=== PATIENT | male | born 1950 | race Caucasian/White ===

== ENCOUNTER → 2016-05-20 | Outpatient (CLI) | payer BC, OTHER ==
[2016-05-20 13:27] LABS: BASO % 0.7 %; BASO ABS # 0.05 K/uL (0-0.2); COMPLETE YES; EOS % 5.2 %; HEMATOCRIT 44.2 % (42-52); IG% 0.1 %; LYMPH ABS # 2.34 K/uL (1.2-3.4); MEAN CORPUSCULAR HEMOGLOBIN 30.9 pg (25-34); MEAN CORPUSCULAR HGB CONC 35.1 g/dl (32-36); MEAN PLATELET VOLUME 9.8 fL (7.4-10.4); MONO % 7.7 %; NEUT % 53.3 %; PLATELET COUNT 203 K/uL (130-400); RED BLOOD COUNT 5.02 M/uL (4.7-6.1)
[2016-05-20 14:00] LABS: ESTIMATED AVERAGE GLUCOSE 137 mg/dl; HA1C FLAG Normal (Normal)
[2016-05-20 14:34] LABS: RATIO 4.4 mcg/mg (0-30.0)
[2016-05-20 15:00] LABS: ALT/SGPT 54 U/L (12-78); AST/SGOT 17 U/L (15-37); BLOOD UREA NITROGEN 15 mg/dl (7-18); BUN/CREATININE RATIO 13.2 (10-20); CALCIUM 8.6 mg/dl (8.5-10.1); CARBON DIOXIDE 27 mmol/L (21-32); CHLORIDE 108 mmol/L (98-107); CHOLESTEROL 210 mg/dl (0-200); GLUCOSE 108 mg/dl (70-99); MAGNESIUM 2.3 mg/dl (1.8-2.4); SODIUM 142 mmol/L (136-145); TRIGLYCERIDES 121 mg/dl (0-150); VERY LOW DENSITY LIPOPROT CALC 24 mg/dl
[2016-05-20 15:11] LABS: ALB/GLOB RATIO 1.2 (0.9-2); ALKALINE PHOSPHATASE 62 U/L (45-117); CHOLESTEROL/HDL RATIO 3.6; HDL CHOLESTEROL 59 mg/dl; LDL CHOLESTEROL CALCULATED 127 mg/dl
--- NOTE | 2016-05-27 12:29 | CODING QUERY MEDICAL NECESSITY ---
CQSUPPORTING DIAGNOSIS NEEDED A supporting diagnosis is required for the test/procedure performed on this patient in order for us to be reimbursed by the patient's insurance. Please provide a supporting diagnosis for the following test/procedure listed below next to the test name along with your signature. *If there is no additional diagnosis for this patient that would support the following test/procedure please document that below next to the test/procedure. Test(s)/Procedure(s) that require a supporting diagnosis: DOS 05/20/16 VITAMIN D TEST VITAMIN B12 TEST TESTS ORDERED BY JAVAD WHITESIDE Provider Signature: Date: Thank you Ruchi Mendoza Health Information Management Once completed, please kindly fax back to [phone] For questions please call [phone]
== END | disposition home or self-care (01) ==
LOC: C.LABMFLN 07:24
PROVIDERS: ATTEND Physician Assistant
DX: E78.5 Hyperlipidemia, unspecified (principal); I10 Essential (primary) hypertension; E11.9 Type 2 diabetes mellitus without complications; R25.2 Cramp and spasm

== ENCOUNTER → 2017-05-01 | Outpatient (CLI) | payer BC ==
[2017-05-01 13:08] LABS: BASO % 0.8 %; BASO ABS # 0.05 K/uL (0-0.2); EOS % 5.6 %; EOS ABS # 0.35 K/uL (0-0.5); HEMATOCRIT 41.2 % (42-52); HEMOGLOBIN 14.5 g/dL (14.0-18.0); LYMPH % 28.4 %; LYMPH ABS # 1.78 K/uL (1.2-3.4); MEAN CELL VOLUME 88.4 fL (80-100); MEAN CORPUSCULAR HEMOGLOBIN 31.1 pg (25-34); MEAN CORPUSCULAR HGB CONC 35.2 g/dl (32-36); MEAN PLATELET VOLUME 9.6 fL (7.4-10.4); MONO % 12.3 %; MONO ABS # 0.77 K/uL (0.11-0.59); NEUT % 52.9 %; NEUT ABS # 3.32 K/uL (1.4-6.5); PLATELET COUNT 248 K/uL (130-400); RED CELL DISTRIBUTION WIDTH CV 13.1 % (11.5-14.5); RED CELL DISTRIBUTION WIDTH SD 42.3 fL (36.4-46.3); WHITE BLOOD COUNT 6.27 K/uL (4.8-10.8)
[2017-05-01 13:35] LABS: ALBUMIN 3.8 gm/dl (3.4-5.0); ALT/SGPT 35 U/L (12-78); AST/SGOT 22 U/L (15-37); BLOOD UREA NITROGEN 14 mg/dl (7-18); CALCIUM 8.9 mg/dl (8.5-10.1); CARBON DIOXIDE 28 mmol/L (21-32); CHOLESTEROL 145 mg/dl (0-200); CREATININE 1.06 mg/dl (0.60-1.40); GLUCOSE 113 mg/dl (70-99); POTASSIUM 3.9 mmol/L (3.5-5.1); SODIUM 137 mmol/L (136-145)
[2017-05-01 13:45] LABS: ALKALINE PHOSPHATASE 66 U/L (45-117); HEMOGLOBIN A1C 5.5 % (4.5-5.6); LDL CHOLESTEROL CALCULATED 66 mg/dl
== END | disposition home or self-care (01) ==
LOC: C.LABMFLN 09:01
PROVIDERS: ATTEND Physician Assistant
DX: I10 Essential (primary) hypertension (principal); E78.5 Hyperlipidemia, unspecified; E11.9 Type 2 diabetes mellitus without complications; Z12.5 Encounter for screening for malignant neoplasm of prostate

== ENCOUNTER 2019-03-25 11:10 | Inpatient (IN) ==
--- NOTE | 2019-02-25 13:07 | PAT Medication Instructions ---
Medication Instructions Date of Service February 25, 2019 Home Medications Medication Instructions Recorded aspirin 81 mg tablet,delayed 81 mg PO DAILY #30 tab 07/13/18 release budesonide-formoterol HFA 160 2 puffs INH BID #6 gm 07/13/18 mcg-4.5 mcg/actuation aerosol inhaler aspirin 81 mg tablet,delayed release 81 mg PO DAILY budesonide-formoterol HFA 160 mcg-4.5 mcg/actuation aerosol inhaler 2 puffs INH BID cyanocobalamin (vitamin B-12) 500 mcg tablet 1,000 mcg PO DAILY albuterol sulfate 2 puffs INH UD PRN amlodipine 5 mg PO QAM escitalopram oxalate 10 mg PO QAM hydrochlorothiazide 25 mg PO DAILY lisinopril 40 mg PO DAILY simvastatin 40 mg PO BID zolpidem 5 - 10 mg PO HS PRN ASK your prescriber and surgeon aspirin 81 mg tablet,delayed release 81 mg PO DAILY DO NOT take the morning of surgery cyanocobalamin (vitamin B-12) 500 mcg tablet 1,000 mcg PO DAILY hydrochlorothiazide 25 mg PO DAILY lisinopril 40 mg PO DAILY Take morning of surgery With a small sip of water, OTHERWISE NOTHING TO EAT OR DRINK AFTER MIDNIGHT: budesonide-formoterol HFA 160 mcg-4.5 mcg/actuation aerosol inhaler 2 puffs INH BID albuterol sulfate 2 puffs INH UD PRN (use if needed; please bring with you to hospital day of surgery if possible) amlodipine 5 mg PO QAM escitalopram oxalate 10 mg PO QAM simvastatin 40 mg PO BID Take evening before surgery budesonide-formoterol HFA 160 mcg-4.5 mcg/actuation aerosol inhaler 2 puffs INH BID albuterol sulfate 2 puffs INH UD PRN (if needed) simvastatin 40 mg PO BID zolpidem 5 - 10 mg PO HS PRN (if needed) Other Notes If you have any questions please call us at [phone] or [phone] or [phone] or [phone]
--- NOTE | 2019-02-26 10:39 | Anesthesiology Consultation ---
Date of Service February 26, 2019 Assessment & Plan (1) Encounter for pre-operative examination: Chart Review Chart Review: Acceptable Risk for Surgery and Patient seen in Pre Admission Testing Teaching & Discussion Pre-Anesthesia Teaching/Discussion Notes: Instructed NPO after midnight before surgery,except medications with 15 cc of water. Medication instructions provided according to the PAT guidelines. History Surgery Operation Date: 03/25/19 07:15 Proposed Procedures p right Total Shoulder Arthroplasty - Mao Sandoval MD Height/Weight Height: 5 ft 7 in Weight: 84.2 kg Allergies Allergy/AdvReac Type Severity Reaction Status Date / Time No Known Allergies Allergy Unknown Verified 02/18/19 11:47 Medications Home Medications Medication Instructions Recorded Confirmed Last Taken aspirin 81 mg tablet,delayed 81 mg PO DAILY #30 tab 07/13/18 02/18/19 Unknown release budesonide-formoterol HFA 160 2 puffs INH BID #6 gm 07/13/18 02/18/19 Unknown mcg-4.5 mcg/actuation aerosol inhaler cyanocobalamin (vitamin B-12) 500 1,000 mcg PO DAILY tab 07/31/18 02/18/19 Unknown mcg tablet albuterol sulfate 2 puffs INH UD PRN 02/18/19 02/18/19 Unknown amlodipine 5 mg PO QAM 02/18/19 02/18/19 Unknown escitalopram oxalate 10 mg PO QAM 02/18/19 02/18/19 Unknown hydrochlorothiazide 25 mg PO DAILY 02/18/19 02/18/19 Unknown lisinopril 40 mg PO DAILY 02/18/19 02/18/19 Unknown simvastatin 40 mg PO BID 02/18/19 02/18/19 Unknown zolpidem 5 - 10 mg PO HS PRN 02/18/19 02/18/19 Unknown Past Medical History Medical History Anxiety Asthma stable Hyperlipidemia Hypertension Exercise / Class Metabolic Activity III < 4 Walking/Shop/Light housework Past Family History Family History Father Cancer Mother Cerebral infarction Brother Diverticulitis Grandfather Family history of cancer Other Family history of diabetes mellitus Past Surgical History Surgical History History of colonoscopy with polypectomy History of knee surgery ? SIDE History of repair of right rotator cuff History of tonsillectomy History of vasectomy Past Anesthesia History No Hx of Anesthesia Complications and No Family Hx of Anesthesia Complications History of PONV No Hx of PONV and No Hx of Motion Sickness Social History Smoking Status: Former smoker Do You Dip or Chew Tobacco: No Smoking End Date: Quit 13.5 YRS AGO Hx Alcohol Use: Yes Alcohol type: beer and other alcohol intake frequency: holidays/special occasions only Alcohol Intake Frequency Comment: BEER OR MIXED DRINK/WINE COOLER Hx Substance Use: Yes (AGE 20'S AND 30'S - EXPERIMENTED - NONE CURRENT) substance use type: does not use Review of Systems Patient denies chest pain, shortness of breath, cough, wheezing, palpitations. Physical Exam Vital Signs VITALS BP 126/71 P 68 TEMP 98.0 SP02 95%RA RESP 18 PHYSICAL Full neck and c-spine range of motion. Full TMJ range of motion. TMD 4 finger breaths Mallampati Score 3 Dentition: upper front right implant, upper partial with remaining teeth Lungs: clear throughout to auscultation Cardiac: regular rate and rhythm, no murmurs noted Spine: normal Carotid arteries: negative bruit Extremities: no edema Testing Laboratory Results 02/26/19 10:51 02/26/19 10:51 PT 10.3 Seconds (9.0-12.0) 02/26/19 10:51 INR 1.0 (0.9-1.1) 02/26/19 10:51 APTT 27.5 Seconds (21.0-31.0) 02/26/19 10:51 Hemoglobin A1c 5.7 % (4.5-5.6) H 02/26/19 10:51 Urine Color Dark Yellow 02/26/19 10:51 Urine Appearance Clear (Clear) 02/26/19 10:51 Urine pH 5.0 (4.5-7.5) 02/26/19 10:51 Ur Specific [place] 1.028 (1.000-1.030) 02/26/19 10:51 Urine Protein Negative (Negative) 02/26/19 10:51 Urine Glucose (UA) Negative (Negative) 02/26/19 10:51 Urine Ketones Trace (Negative) H 02/26/19 10:51 Urine Nitrite Negative (Negative) 01/17/20 10:51 Ur Leukocyte Esterase Trace (Negative) H 02/26/19 10:51 Urine WBC (Auto) 1-5 /hpf (0-5) 02/26/19 10:51 Urine RBC (Auto) 0-4 /hpf (0-4) 02/26/19 10:51 U Hyaline Cast (Auto) >30 /lpf (0-5) H 02/26/19 10:51 U Epithel Cells (Auto) >30 /lpf (0-5) H 02/26/19 10:51 Urine Bacteria (Auto) Negative (Negative) 02/26/19 10:51 Blood Type O Positive 02/26/19 10:51 Antibody Screen NEGATIVE 02/26/19 10:51 Electrocardiogram Date: 02/26/19 Findings: + NSR @ (70) Chest X-Ray Date: 02/26/19 Findings: + NAD Stress Test Date: 11/24/17 Type: exercise Stress echo negative for ischemia by EKG and ECHO criteria. Target heart rate achieved. 6.0 METS. Occasional PVC's and occasional PAC's. LVEF 55-59%. No significant valvular disease. 42% MPHR.
--- NOTE | 2019-02-26 11:19 | XRay Report ---
XR chest Pre-admission PA/Lat CLINICAL HISTORY: pat preoperative evaluation COMPARISON STUDY: No previous studies for comparison. FINDINGS: The bones soft tissues and hemidiaphragms are normal. The cardiomediastinal silhouette is n ormal. The lungs are clear. The pulmonary vasculature is normal. IMPRESSION: Negative chest. ACT 112: Negative or not required by law. The above report was generated using voice recognition software. It may contain grammatical, syntax or spelling errors. Electronically signed by: Ferdinand Llanes M.D. 02/26/2019 11:18 AM
[2019-02-26 11:31] LABS: Basophils # (auto) 0.05 K/uL (0-0.2); Basophils % (auto) 0.8 %; Eosinophils # (auto) 0.36 K/uL (0-0.5); Eosinophils % (auto) 5.8 %; Hematocrit (blood only) 42.8 % (42-52); Hemoglobin 15.1 g/dL (14.0-18.0); Immature Granulocytes # (auto) 0.01 K/uL (0.00-0.02); Immature Granulocytes % (auto) 0.2 %; Lymphocytes # (auto) 1.62 K/uL (1.2-3.4); Mean Corpuscular Hemoglobin 31.1 pg (25-34); Mean Corpuscular Hgb Conc 35.3 g/dL (32-36); Mean Corpuscular Volume 88.2 fL (80-100); Mean Platelet Volume 9.5 fL (7.4-10.4); Monocytes # (auto) 0.55 K/uL (0.11-0.59); Monocytes % (auto) 8.8 %; Neutrophils # (auto) 3.65 K/uL (1.4-6.5); Neutrophils % (auto) 58.4 %; Platelet Count 249 K/uL (130-400); RDW Coefficient of Variation 12.8 % (11.5-14.5); RDW Standard Deviation 41.2 fL (36.4-46.3); Red Blood Count 4.85 M/uL (4.7-6.1); White Blood Count 6.24 K/uL (4.8-10.8)
[2019-02-26 11:34] LABS: Appearance Urine Clear (Clear); Bacteria Urine Automated Negative (Negative); Bilirubin Urine Negative (Negative); Blood Urine Negative (Negative); Color Urine Dark Yellow; Epithelial Cell Urine Auto >30 /lpf (0-5); Glucose Urine UA Negative (Negative); Ketones Urine Trace (Negative); Leukocyte Esterase Urine Trace (Negative); Nitrite Urine Negative (Negative); Protein Urine Negative (Negative); RBC Urine Automated 0-4 /hpf (0-4); Specific Gravity Urine 1.028 (1.000-1.030); Urobilinogen Urine Negative (Negative)
[2019-02-26 11:37] LABS: Albumin Level 3.9 gm/dl (3.4-5.0); BUN Creatinine Ratio 15.5 (10-20); Calcium 9.3 mg/dl (8.5-10.1); Creatinine Clr Calc Pharmacy 54.3 ml/min; Est GFR (African American) 61.4; Potassium 3.7 mmol/L (3.5-5.1)
[2019-02-26 11:44] LABS: Partial Thromboplastin Time 27.5 Seconds (21.0-31.0); Prothrombin Time 10.3 Seconds (9.0-12.0)
[2019-02-26 11:57] LABS: Cast Urine Automated >30 /lpf (0-5); Mucus Urine Present (None Prsent)
--- NOTE | 2019-02-26 12:16 | Electrocardiogram Report ---
Test Reason : Blood Pressure : / mmHG Vent. Rate : 070 BPM Atrial Rate : 070 BPM P-R Int : 166 ms QRS Dur : 070 ms QT Int : 368 ms P-R-T Axes : 070 045 045 degrees QTc Int : 397 ms Normal sinus rhythm Normal ECG No previous ECGs available Confirmed by Jay See ([id number]) on 02/26/2019 12:15:55 PM Referred By: Mao Sandoval Confirmed By:Jay See
[2019-02-26 12:29] LABS: Estimated Average Glucose 117 mg/dl; Hemoglobin A1C 5.7 % (4.5-5.6)
--- NOTE | 2019-03-24 23:40 | History and Physical Report ---
DATE OF ADMISSION: 03/25/2019 CHIEF COMPLAINT: Chronic right shoulder pain and weakness. HISTORY OF PRESENT ILLNESS: This is a 68-year-old male patient of Dr. Sandoval'jamey complaining of chronic right shoulder pain and weakness, longstanding, now progressively getting worse. The patient has failed conservative treatment including physical therapy and intra-articular injections. The patient has been diagnosed with end-stage osteoarthritis per clinical and radiographic exams. The patient wished to proceed with a right total shoulder arthroplasty versus a reverse total shoulder arthroplasty. PAST MEDICAL HISTORY: Hypertension, hypercholesterolemia, asthma. SOCIAL HISTORY: Nonsmoker, occasional drinker. PAST SURGICAL HISTORY: Right rotator cuff, discectomy, right knee and tonsillectomy. FAMILY HISTORY: Noncontributory. REVIEW OF SYSTEMS: Chronic right shoulder pain and weakness. Otherwise, denies any shortness of breath, chest pain, nausea, vomiting or any other joint complaints. MEDICATIONS: 1. Zetia 10 mg daily. 2. Simvastatin 20 mg daily. 3. Fish oil 1000 mg daily. 4. Albuterol sulfate 90 mcg actuation 2 puffs every 4-6 hours p.r.n. 5. Advair Diskus 2 puffs inhalation 2 times q.a.m. and q.p.m. 6. Lisinopril 10 mg daily. 7. Hydrochlorothiazide 25 mg daily. 8. Aspirin 81 mg daily. ALLERGIES: No known drug allergies. PHYSICAL EXAMINATION: GENERAL: Well-developed, well-nourished 68-year-old male, in no acute distress. He is alert and oriented x3 and pleasant. HEENT: Normocephalic, atraumatic. Extraocular motions are intact. Pupils are equal and reactive to light. HEART: Regular rate and rhythm. No murmurs appreciated. LUNGS: Clear. ABDOMEN: Soft, nontender, bowel sounds present. EXTREMITIES: Right shoulder reveals active range of motion 0-100, passively to 140. He has crepitation and pain with range of motion. He has 5/5 strength with pain. NEUROLOGIC AND NEUROVASCULAR: He is intact in his right upper extremity. DIAGNOSES: Right shoulder end-stage osteoarthritis. He has a history of hypertension, hypercholesterolemia, asthma. PLAN: The patient was advised of his diagnosis. Indications, risks, benefits, postop course have all been reviewed. The patient wished to proceed with a right total shoulder arthroplasty versus reverse total shoulder arthroplasty. Necessary consent forms, preoperative testing and clearances will be obtained.
[~2019-03-25 11:10] MED LIST: ACETAMINOPHEN 500 MG TAB PO SCH; CEFAZOLIN 2000MG 2,000 MG/15 ML SYR IV SCH; CeleBREX 200 MG CAP PO SCH; DEXAMETHASONE SOD INJ 4 MG/ML VIAL ONE; FAMOTIDINE 20 MG TAB PO SCH; GABAPENTIN 300 MG CAP PO SCH; LIDOCAINE HCL 2% 2 ML VIAL/AMP(20MG/ML) INFIL ONE; LR 15ML/HR IV SCH; METOCLOPRAMIDE HCL 10 MG TABLET PO SCH; MIDAZOLAM HCL 1 MG/ML 2ML VIAL ONE; ONDANSETRON INJ 2 MG/ML 2 ML VIAL ONE; PROPOFOL IV EMULSION 10 MG/ML 20 ML VIAL IV ONE; ROCURONIUM BROMIDE 10 MG/ML 5 ML VIAL ONE; ROPIVACAINE 0.5% 5 MG/ML 30 ML VIAL ONE; dexAMETHasone 4 MG TAB PO SCH; fentaNYL citrate 100 MCG/2 ML VIAL ONE
--- NOTE | 2019-03-25 11:40 | History & Physical Bridge Note ---
Date of Service March 25, 2019 History & Physical Bridge Note I have examined the patient, reviewed the History & Physical and in the interval since the performance of the History & Physical I have noted the following changes of clinical significance: no changes noted
[2019-03-25] MEDS ORDERED: ALBUTEROL 0.083% NEBU SOLN 3 ML VIAL INH PRN (12:53)
[2019-03-25] MEDS ORDERED: HYDROmorphone INJ 1 MG/ML SYRINGE IV PRN (12:53)
[2019-03-25] MEDS ORDERED: ONDANSETRON INJ 2 MG/ML 2 ML VIAL IV PRN ×2 (12:53→18:31)
[2019-03-25] MEDS ORDERED: ATROPINE SULFATE 0.1 MG/ML 10ML SYR IV PRN (12:53)
[2019-03-25] MEDS ORDERED: KETOROLAC 30 MG/ML VIAL IV PRN (12:53)
[2019-03-25] MEDS ORDERED: EpINEphrine HCL INJ 1 MG/ML 1ML SYRINGE ONE (13:04)
[2019-03-25] MEDS ORDERED: BACITRACIN INJ 50,000 UNIT VIAL ONE (13:07)
[2019-03-25] MEDS ORDERED: ePHEDrine sulfate 50 MG/ML AMP ONE (14:02)
[2019-03-25] MEDS ORDERED: ROCURONIUM BROMIDE 10 MG/ML 5 ML VIAL ONE (14:36)
[2019-03-25] MEDS ORDERED: THROMBIN 5000 UNITS KIT ONE (16:21)
--- NOTE | 2019-03-25 17:12 | Post Operative Brief Note ---
Immediate Post Op Note v1 Date of Surgery March 25, 2019 Pre & Post Diagnosis Operation Date: 03/25/19 13:55 Pre-Op Diagnosis: Severe glenohumeral osteoarthritis with bone loss status post open rotator cuff repair and decompression Post-Op Diagnosis: Severe glenohumeral osteoarthritis with bone loss and posterior instability with rotator cuff tendinopathy biceps tendinopathy incomplete tear rotator cuff supraspinatus retained suture material status post rotator cuff repair I identified the patient and participated in the time-out.: Yes Procedure Operation Date: 03/25/19 13:55 Actual Procedures p Right Reverse Total Shoulder Arthroplasty, Bicep Tenodesis (Right) - Mao Sandoval MD Surgeon Mao Sandoval MD Tubing Mill Operator Judd FARNSWORTH Estimated Blood Loss 300 Findings Consistent with Post-Op Diagnosis Specimens Humeral head Drains Hemovac Drain (dual trocar) Anesthesia Type General Regional Complications none Disposition Accompanied Patient To Recovery: No Disposition: Recovery Room Overlapping Procedure I was immediately available: during the entire case.
--- NOTE | 2019-03-25 17:50 | Operative Report ---
Post Operative Report Pre & Post Diagnosis Operation Date: 03/25/19 13:55 Pre-Op Diagnosis: Osteoarthritis, Right Shoulder Post-Op Diagnosis: Severe Glenohumeral Osteoarthritis with Bone Loss and Posterior Instability with Rotator Cuff Tendinopathy; Biceps Tendinopathy; Incomplete Tear Rotator Cuff, Supraspinatus Retained Suture Material Status Post Rotator Cuff Repair I identified the patient and participated in the time-out.: Yes Procedure Operation Date: 03/25/19 13:55 Actual Procedures p Right Reverse Total Shoulder Arthroplasty, Bicep Tenodesis (Right) - Mao Sandoval MD Surgeon Mao Sandoval MD Layer Out Judd FARNSWORTH Estimated Blood Loss 300 Findings Consistent with Post-Op Diagnosis Specimens Humeral head Drains 2 Hemovac Anesthesia Type General Regional Complications none Disposition Accompanied Patient To Recovery: No Disposition: Recovery Room Indications 68-year-old male with history of rotator cuff repair many years ago. Has had progressive osteoarthritis of glenohumeral arthritis over the years now with bone loss posterior subluxation of the humerus. Preoperative imaging MRI CT plain radiographs suggest 80% subluxation posteriorly type B2 glenoid with bone loss posteriorly intact rotator cuff with tendinopathy and thinning supraspinatus. Patient has failed conservative management. Description of Procedure The patient was taken to the operating room and anesthetized under regional block and general anesthetic. The patient was positioned on the operating table in a 30 beach chair position with a towel roll under the medial border of the right scapula. The arm was draped free to be able to manipulate the shoulder as needed. The right upper extremity was prepped and draped in usual sterile fashion. Exam demonstrated 0 degrees external rotation, 70 degrees abduction 90 degrees forward elevation 70 degrees internal rotation [id number] crepitation saber type scar over superior shoulder deltoid intact no defect. An anterior deltopectoral approach was performed. A longitudinal incision was made in the deltopectoral interval. The skin was incised sharply. Subcutaneous flaps were elevated off the fascia. The cephalic vein was dissected out and retracted lateral with the deltoid. The clavipectoral fascia was divided at the lateral margin of the conjoined tendon and extended up to the CA ligament. The following findings were noted shoulder was subluxed posteriorly the subscapularis was intact with some bursitis overlying it. There was biceps tendinopathy in the biceps groove with scar tissue through the bicipital groove. there was thinning of the biceps tendon proximally with biceps tendon being normal at the level of the pectoralis tendon. There was subacromial scar tissue from prior open surgery subdeltoid adhesions suture material from prior rotator cuff repair with a thin but intact rotator cuff repair partial tearing over the greater tuberosity intra-articular attachment. The upper centimeter of the pectoralis was released for inferior exposure. the biceps tendon was tenodesed to the pectoralis tendon with #2 FiberWire. The proximal biceps was resected. The subscapularis tendon was taken down off the lesser tuberosity using a subperiosteal dissection. A #1 Vicryl traction suture was placed into the free end of the subscapularis tendon and capsule. The subscapular muscle fibers were split longitudinally at the level of the circumflex vessels. The circumflex vessels were identified and tied off with silk ties and divided laterally. A Kitner elevator was used to free up the inferior fibers of the subscapularis off of the capsule. The axillary nerve was identified with a tug test and protected with a blunt Janet retractor between the nerve and the capsule. The subscapularis tendon was then taken down off of the lesser tuberosity subperiosteally and subperiosteal dissection was performed along the neck of the humerus as the arm is gradually actually rotated exposing the humeral head. Humeral head was eroded somewhat flattened there was a large ridge in a crescent shape matching the posterior glenoid wear the humeral head had a fixed posterior subluxation completely down to bone. Retractors were readjusted and the large anterior to posterior, inferior osteophytes were all resected using an artist chisel. A English elevator was used to assist in releasing the capsule of the neck of the humerus. The capsule was divided with Lyman scissors down to the glenoid released off the anterior glenoid and the rotator interval was released to meet the capsular release and a 360 release of the subscapularis was accomplished. A Fukuda retractor was placed into the joint retracting the humeral head posterior. Glenoid findings demonstrated B2 glenoid with significant posterior bone loss and sloping off of the glenoid. The labrum and biceps tendon was resected. an anterior-inferior and posterior inferior capsular release were performed with electrocautery and a English elevator on bone with the axillary nerve protected inferiorly by the retractor. Attention was then taken to the humeral preparation. I released the supraspinatus tendon leaving the infraspinatus tendon fully intact. The old suture material and a suture anchor were removed. The cutting guide was placed into the humeral head. It was positioned at 20 of retroversion. Oscillating saw was used to resect the humeral head giving the cut above the level of the posterior rotator cuff insertion site. The humerus was then prepared for the stem. I used the ascend flex stem from [employer]. The sizing broaches were used followed by trial broaches up to a size 4 which had the appropriate fit and fill. The appropriate sized cut protector was placed. The humerus was then retracted posterior to the glenoid. The glenoid was sized for a perform glenoid 29 mm full wedge based on preoperative templating. We used CT-guided blueprint PSI guide and templating with a custom guide.. The guide for the baseplate was positioned. The reamer for the baseplate was used. The reamer for the central boss was used. The depth gauge was used to measure for the central screw. The 29 mm Tornier perform full wedge porous-coated glenoid with 6.5 x 35 mm central screw was screwed into position. Bone quality was very hard and sclerotic. The base plate was transfixed with first a posterior compression screw in the area of the wedge followed by anterior, superior and inferior locking screws. There was stable fixation. The fan reamer was used for the 42 millimeter glenoid sphere. Due to the lateralization due to the type of implant there was no contact and no bone need to be removed. There were some inferior spurs on the glenoid and some anterior the removed with a rongeur to assure that there was no bony impingement with range of motion once the humeral prosthetic was placed. After irrigation the standard 42 mm glenoid sphere was impacted onto the baseplate and the screw was tightened. Attention was taken back to the humerus. The cut protector was removed and the +0 humeral tray trial was assembled to the trial stem rotated appropriately to get bony coverage and then screwed in position. A trial reduction was performed. Shoulder was too tight despite muscle relaxation to reduce so we had to recut the humerus removing 3 to 4 mm of bone by using size 3 and 4 broaches setting them deeper in to the bone by 3 to 4 mm making a new cut. Plus or high offset tray once again placed and trial insert +6,42 demonstrated good stability and no shuck. The trials were removed. 3 drill holes are made into the harder bone in the bicipital groove area and 3 #5 FiberWire sutures were placed transosseously. The canal was irrigated with antibiotic solution with bacitracin. The final component was assembled. The final component was T[employer]ier ascend flex 4B long humeral stem assembled to +0 high offset humeral tray with the 42+6 humeral polyethylene insert. This was then impacted into the humerus with a tight press-fit. It was reduced to the glenoid sphere. Stability was verified. Subscapularis was repaired with the #5 FiberWire sutures using Chuck-Omega suture technique. Lateral row soft tissue repair was performed with #2 FiberWire [id number] sutures. The pectoralis was repaired with #2 FiberWire [id number] sutures reinforcing the biceps tendon tenodesis. The arm was taken through a range of motion which demonstrated 160 degrees forward elevation, 90 degrees abduction, 70 degrees external rotation and internal rotation with no tension on repair. The implant was stable through the range of motion tested. The wound was copiously irrigated. 2 Hemovac drains were placed. The deltopectoral interval was closed with [id number] #1 Vicryl sutures. The subcutaneous tissues were closed with 2-0 Vicryl sutures. The skin was closed with toi. Sterile dressings were applied and a shoulder immobilizer. Judd FARNSWORTH my physician administrative assistant front desk assisted in the procedure to the entire procedure including patient positioning arm positioning prepping and draping soft tissue retraction instrument management suture management and performed the subcutaneous and skin closure and will participate in the postoperative care of the patient. I attest to the content of the Intraoperative Record and any orders documented therein. Any exceptions are noted below.
--- NOTE | 2019-03-25 18:04 | Anesthesiology Progress Note ---
Date of Service March 25, 2019 Anesthesia Post Procedure Vital Signs Vital Signs: Temp Pulse Pulse Resp BP Pulse Ox 03/25/19 17:55 87 16 126/72 95 03/25/19 17:45 36.6 C 90 18 117/70 96 03/25/19 17:35 80 18 121/68 97 03/25/19 17:25 80 18 121/69 97 03/25/19 17:16 36.3 C L 90 18 139/74 97 03/25/19 12:24 36.8 C 64 18 132/76 95 Pain Intensity Right Shoulder: Pain Intensity: 2 Transfer of Care Handoff Completed per policy Notes Mental Status: alert / awake / arousable Patient Amnestic to Procedure: Yes Nausea / Vomiting: adequately controlled Pain: adequately controlled Airway Patency, RR, SpO2: stable & adequate BP & HR: stable & adequate Hydration State: stable & adequate Anesthetic Complications: no major complications apparent and Pt Satisfied with anesthetic care
--- NOTE | 2019-03-25 18:23 | XRay Report ---
XR shoulder RT min 2V routine CLINICAL HISTORY: Post shoulder surgery COMPARISON: None FINDINGS: Alignment of the reverse total right shoulder arthroplasty is anatomic. There is no fractu re or unexpected radiopaque foreign body. There are drains and skin toi. IMPRESSION: Expected findings following right shoulder arthroplasty. ACT 112: Negative or not required by law. Electronically signed by: Hari Treviño M.D. 03/25/2019 6:21 PM
[2019-03-25] MEDS ORDERED: MAGNESIUM HYDROXIDE SUSP 30 ML UDC PO PRN (18:31)
[2019-03-25] MEDS ORDERED: NALOXONE HCL 0.4 MG/1 ML VIAL/CARP IV PRN (18:31)
[2019-03-25] MEDS ORDERED: bisacodyL 10 MG SUPP PR PRN (18:31)
[2019-03-25] MEDS ORDERED: SODIUM CHLORIDE 0.9% 1000ML 1,000 ML IV SCH (18:31)
[2019-03-25] MEDS ORDERED: ALBUTEROL HFA 8 GM INHALER INH PRN (18:45)
[2019-03-25] MEDS: ASPIRIN 81 MG ECTAB PO SCH (20:03)
[2019-03-25] MEDS: DOCUSATE SODIUM 100 MG CAP PO SCH (20:03)
[2019-03-25] MEDS: SIMVASTATIN 40 MG TAB PO SCH (20:04)
[2019-03-25] MEDS: SENNA 8.6 MG TAB PO SCH (20:04)
[2019-03-25] MEDS: CEFAZOLIN 2000MG 2,000 MG/15 ML SYR IV SCH (22:15)
[2019-03-25] MEDS: ACETAMINOPHEN 500 MG TAB PO SCH (22:15)
[2019-03-26] MEDS: OXYCODONE HCL IR 5 MG TAB (IMMEDIATE RELEASE) PO PRN ×5 (02:47→20:31)
[2019-03-26] MEDS: ACETAMINOPHEN 500 MG TAB PO SCH ×3 (05:32→21:20)
[2019-03-26] MEDS: CEFAZOLIN 2000MG 2,000 MG/15 ML SYR IV SCH (05:32)
[2019-03-26 05:37] LABS: Hemoglobin 11.8 g/dL (14.0-18.0); Immature Granulocytes # (auto) 0.03 K/uL (0.00-0.02); Immature Granulocytes % (auto) 0.3 %; Lymphocytes # (auto) 0.98 K/uL (1.2-3.4); Lymphocytes % (auto) 9.1 %; Mean Corpuscular Hgb Conc 34.7 g/dL (32-36); Mean Corpuscular Volume 86.5 fL (80-100); Mean Platelet Volume 9.4 fL (7.4-10.4); Monocytes % (auto) 7.4 %; Neutrophils # (auto) 9.01 K/uL (1.4-6.5); Neutrophils % (auto) 83.2 %; Platelet Count 223 K/uL (130-400); RDW Coefficient of Variation 12.4 % (11.5-14.5); RDW Standard Deviation 39.3 fL (36.4-46.3); Red Blood Count 3.93 M/uL (4.7-6.1); White Blood Count 10.82 K/uL (4.8-10.8)
[2019-03-26 06:04] LABS: BUN Creatinine Ratio 14.5 (10-20); Calcium 8.5 mg/dl (8.5-10.1); Est GFR (African American) 59.3; Est GFR (Non-African American) 51.2; Potassium 3.8 mmol/L (3.5-5.1)
--- NOTE | 2019-03-26 07:58 | Anesthesiology Progress Note ---
Date of Service March 26, 2019 Anesthesia Post Procedure Vital Signs Vital Signs: Temp Pulse Pulse Pulse Resp BP Pulse Ox 03/26/19 07:50 37.0 C 88 20 122/71 95 03/26/19 04:04 37.0 C 83 20 97/58 L 95 03/26/19 00:00 36.9 C 115 H 22 122/70 93 03/25/19 20:26 36.8 C 120 H 18 145/85 H 99 03/25/19 19:34 36.9 C 112 H 18 136/80 96 03/25/19 18:55 36.9 C 107 H 18 117/79 93 03/25/19 18:25 37.1 C 92 H 16 122/77 95 03/25/19 18:10 87 16 113/69 96 03/25/19 17:55 87 16 126/72 95 03/25/19 17:45 36.6 C 90 18 117/70 96 03/25/19 17:35 80 18 121/68 97 03/25/19 17:25 80 18 121/69 97 03/25/19 17:16 36.3 C L 90 18 139/74 97 03/25/19 12:24 36.8 C 64 18 132/76 95 Pain Intensity Right Shoulder: Pain Intensity: 3 Notes Mental Status: alert / awake / arousable Patient Amnestic to Procedure: Yes Nausea / Vomiting: adequately controlled Pain: adequately controlled Airway Patency, RR, SpO2: stable & adequate BP & HR: stable & adequate Hydration State: stable & adequate Anesthetic Complications: no major complications apparent and Pt Satisfied with anesthetic care
--- NOTE | 2019-03-26 08:21 | Orthopedic Progress Note ---
Date of Service March 26, 2019 Assessment & Plan (1) Rotator cuff insufficiency of right shoulder: POD #1, Right Reverse TSA, Biceps Tenodesis. Limited PT/ OT- No formal PT needed for 6 weeks. D/C plans- Home W HEP Sat As per medicine. Admission and Anticipated Discharge Date Admission Date: March 25, 2019 Subjective POD #1, Doing well. Denies SOB, CP, N/V. Pain controlled well. Physical Exam Physical Exam: Right shoulder dressings c/d/i, no drainage. Fingers mobile. Sling in tact. A&Ox3. VSS. Results & Data ([facility]) Vital Signs (Past 12 Hours) Vital Signs Temp Pulse Pulse Resp BP Pulse Ox 03/26/19 07:50 37.0 C 88 20 122/71 95 03/26/19 04:04 37.0 C 83 20 97/58 L 95 03/26/19 00:00 36.9 C 115 H 22 122/70 93 03/25/19 20:26 36.8 C 120 H 18 145/85 H 99
[2019-03-26] MEDS: FLUTICASONE/VILANTEROL 200/25MCG 14 PUFFS/INHALER INH SCH (08:27)
[2019-03-26] MEDS: ASPIRIN 81 MG ECTAB PO SCH ×2 (08:28→20:31)
[2019-03-26] MEDS: DOCUSATE SODIUM 100 MG CAP PO SCH ×2 (08:28→20:31)
[2019-03-26] MEDS: AMLODIPINE BESYLATE 5 MG TAB PO SCH (08:28)
[2019-03-26] MEDS: SIMVASTATIN 40 MG TAB PO SCH ×2 (08:28→20:31)
[2019-03-26] MEDS: ESCITALOPRAM OXALATE 10 MG TAB PO SCH (08:28)
[2019-03-26] MEDS: CYANOCOBALAMIN 500 MCG TABLET (VITAMIN B-12) PO SCH (08:29)
[2019-03-26] MEDS: MULTIVITAMIN TAB PO SCH (08:29)
[2019-03-26] MEDS ORDERED: lisinopriL 40 MG TAB PO SCH (09:00)
[2019-03-26] MEDS: HYDROmorphone INJ 0.5 MG/0.5 ML SYR IV PRN ×3 (10:08→18:05)
--- NOTE | 2019-03-26 12:25 | Hospitalist Consultation ---
Date of Consultation March 26, 2019 Assessment & Plan (1) Rotator cuff insufficiency of right shoulder: - S/P R Reverse Total Shoulder Arthroplasty; Biceps Tenodesis on 03/25 - Surgical management per primary; pain control, bowel regimen, DVT prophylaxis (ASA 81 mg BID) (2) Essential hypertension: - STABLE - Continue Amlodipine 5 mg daily - Holding Lisinopril 40 mg daily and HCTZ 25 mg daily - given slight bump in renal function which is likely prerenal. Will recheck AM labs and likely can resume tomorrow or on D/C (3) Hyperlipidemia: - Continue Simvastatin 40 mg BID (4) Asthma: - STABLE; no exacerbation - Continue ARBEN and PRN inhalers (5) Anxiety: - Continue Lexapro 10 mg daily Supervising Physician Co-Signing Physician Notes PA Supervision Note: I personally saw and examined the patient. I verified all sood points and agree with JAVAD Carlson with the following exceptions and/or additions: Pt feeling well, has control of rt shoulder pain. Denies CP or SOB, no nausea, is mabulating. History and ROS reviewed as above Labs reviewed VSS NAD, AAOx3 RRR no mgr CTAB no wcr ABd +BS soft NT Ext RUE in sling, no LE edema or calf tenderness 68 yo male with history as above here for rt TSA. Plan outlined as above repeat BMP in AM and if utilization management manager stable or improved, ok to restart home meds on discharge likely tomorrow Medicine Service will SIGN OFF at this time. Please feel free to reconsult or call with acute issues. History of Present Illness Reason for Consultation: Medical Management Attending Physician: Mao Sandoval MD History of Present Illness Mr. Ferraro is a 68 y/o male with PMHx of HTN, HLD, and Asthma who is S/P R Shoulder Repair on 03/25. Overall doing well post-operatively. Having some increased pain since nerve block wore off. Otherwise has no complaints. His Cr did slightly rise on AM labs but suspect this is pre-renal and should resolve spontaneously. Did hold Lisinopril and HCTZ yesterday just in case. These likely can be resumed tomorrow or on D/C. He reports being stable in regards to his chronic conditions. No recent asthma exacerbation. No H/O PR/CHF/PE/DVT. Allergies Allergy/AdvReac Type Severity Reaction Status Date / Time No Known Allergies Allergy Unknown Verified 03/25/19 11:55 Home Medications Home Medications Medication Instructions Recorded Confirmed Type budesonide-formoterol HFA 160 2 puffs INH BID #6 gm 07/13/18 03/25/19 Rx mcg-4.5 mcg/actuation aerosol inhaler cyanocobalamin (vitamin B-12) 500 1,000 mcg PO DAILY tab 07/31/18 03/25/19 History mcg tablet albuterol sulfate 2 puffs INH UD PRN 02/18/19 03/25/19 History hydrochlorothiazide 25 mg PO DAILY 02/18/19 03/25/19 History lisinopril 40 mg PO DAILY 02/18/19 03/25/19 History simvastatin 40 mg PO BID 02/18/19 03/25/19 History zolpidem 10 mg tablet 5 - 10 mg PO HS PRN #30 tab 03/02/19 03/25/19 Rx amlodipine 5 mg tablet See Rx Instructions .ROUTE 03/08/19 03/25/19 Rx .COMPLEX #90 tablet escitalopram oxalate [Lexapro] 10 mg PO QAM 03/25/19 03/25/19 History vit D3-vit [id number] 5,000 mg PO DAILY 03/25/19 03/25/19 History Patient History Medical History Anxiety Asthma stable Hyperlipidemia Hypertension Surgical History History of colonoscopy with polypectomy History of knee surgery ? 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 Beliefs That Will Affect Care: None Current Living Situation: Spouse Other Information That Helps Us Care for You: No Feels Safe at Home: Yes Smoking Status: Former smoker Do You Dip or Chew Tobacco: No ; Smoking End Date: Quit 13.5 YRS AGO ; Hx Alcohol Use: Yes Alcohol type: beer and other Hx Substance Use: Yes (AGE 20'S AND 30'S - EXPERIMENTED - NONE CURRENT) substance use type: does not use Review of Systems Constitutional: no fever and no chills Eyes: no worsening vision Ear, Nose, Mouth, Throat: no nasal congestion, no sore throat and no dysphagia Respiratory: no cough and no dyspnea Cardiovascular: no chest pain, no palpitations, no lightheadedness and no edema Gastrointestinal: no abdominal pain, no nausea, no vomiting, no constipation and no diarrhea/loose stools Genitourinary: no dysuria Musculoskeletal: + joint pain (R shoulder) Integumentary: no rash Neurologic: no tingling and no numbness Physical Exam Constitutional: WD/WN, vitals as above Eyes: + anicteric sclerae ENMT: Ears: no hearing impairment Neck: trachea midline Respiratory: normal respiratory effort, lungs clear to auscultation Cardiovascular: RRR, no murmur, no edema Gastrointestinal (Abdomen): Inspection/Auscultation: normal bowel sounds Percussion/Palpation: abdomen soft; abdomen nontender Musculoskeletal: R shoulder place in sling with bandage applied to surgical site; drain present; cap refill immediate and movement noted to fingers Skin: no rashes, warm and dry Neurologic: moves all extremities (did not assess RUE) Psychiatric: A+Ox3, euthymic affect Results & Data ([facility]) Vital Signs (Past 12 Hours) Vital Signs Temp Pulse Resp BP Pulse Ox 03/26/19 07:50 37.0 C 88 20 122/71 95 03/26/19 04:04 37.0 C 83 20 97/58 L 95 PG Care Time/CCT Total # of Minutes Spent Total Time Spent with Patient: Total time spent is greater than 50% in coordination of care (as documented) at patient's floor/unit and/or counseling patient: Coding Level of Care Code 58527 Inpt Consult Level 2 Diagnoses Rotator cuff insufficiency of right shoulder M25.311 Essential hypertension I10 Hyperlipidemia E78.5 Asthma J45.909 Anxiety F41.9
[2019-03-26] MEDS ORDERED: KETOROLAC TROMETHAMINE 15 MG/ML VIAL IV ONE (18:15)
[2019-03-26] MEDS: SENNA 8.6 MG TAB PO SCH (20:31)
[2019-03-27] MEDS: OXYCODONE HCL IR 5 MG TAB (IMMEDIATE RELEASE) PO PRN ×2 (03:24→07:37)
[2019-03-27] MEDS: ACETAMINOPHEN 500 MG TAB PO SCH (05:52)
[2019-03-27 05:57] LABS: Hematocrit (blood only) 31.7 % (42-52); Hemoglobin 11.1 g/dL (14.0-18.0); Mean Corpuscular Hemoglobin 30.4 pg (25-34); Mean Corpuscular Volume 86.8 fL (80-100); Mean Platelet Volume 9.1 fL (7.4-10.4); Platelet Count 212 K/uL (130-400); RDW Coefficient of Variation 12.7 % (11.5-14.5); RDW Standard Deviation 40.5 fL (36.4-46.3); Red Blood Count 3.65 M/uL (4.7-6.1); White Blood Count 9.51 K/uL (4.8-10.8)
[2019-03-27 06:22] LABS: BUN Creatinine Ratio 18.3 (10-20); Calcium 8.4 mg/dl (8.5-10.1); Creatinine Clr Calc Pharmacy 62.3 ml/min; Est GFR (African American) 72.1; Est GFR (Non-African American) 62.2; Potassium 4.1 mmol/L (3.5-5.1)
[2019-03-27] MEDS: FLUTICASONE/VILANTEROL 200/25MCG 14 PUFFS/INHALER INH SCH (07:32)
[2019-03-27] MEDS: MULTIVITAMIN TAB PO SCH (07:32)
[2019-03-27] MEDS: DOCUSATE SODIUM 100 MG CAP PO SCH (07:33)
[2019-03-27] MEDS: CYANOCOBALAMIN 500 MCG TABLET (VITAMIN B-12) PO SCH (07:33)
[2019-03-27] MEDS: SIMVASTATIN 40 MG TAB PO SCH (07:33)
[2019-03-27] MEDS: ESCITALOPRAM OXALATE 10 MG TAB PO SCH (07:34)
[2019-03-27] MEDS: ASPIRIN 81 MG ECTAB PO SCH (07:34)
[2019-03-27] MEDS: AMLODIPINE BESYLATE 5 MG TAB PO SCH (07:34)
--- NOTE | 2019-03-27 09:39 | Orthopedic Progress Note ---
Date of Service March 27, 2019 Assessment & Plan (1) Rotator cuff insufficiency of right shoulder: POD #2, Right Reverse TSA, Biceps Tenodesis. Limited PT/ OT- No formal PT needed for 6 weeks. D/C plans- Home W HEP today As per medicine. Admission and Anticipated Discharge Date Admission Date: March 25, 2019 Subjective POD #2, Doing well. Pain increased last night but pain injection helped significantly. Denies SOB, CP, N/V. Pain controlled well. Physical Exam Constitutional: WD/WN, vitals as above Musculoskeletal: Shoulder: + surgical incision (right shoulder dressing C/D/I. ); shoulder normal to inspection, no skin erythema, no ecchymosis and no surgical drain present Right hand: Fingers mobile, Cap refill <2 seconds. Results & Data ([facility]) Vital Signs (Past 12 Hours) Vital Signs Temp Pulse Resp BP Pulse Ox 03/27/19 06:15 36.7 C 77 16 135/74 95 03/26/19 23:12 36.8 C 76 16 122/73 92
== END 2019-03-27 11:29 | disposition home or self-care (01) | DRG 483 ==
LOC: ASU 11:10 → 3E 17:29
DX: M19.011 Primary osteoarthritis, right shoulder